=== PATIENT | female | born 1965 | race Caucasian/White ===

== ENCOUNTER → 2023-10-09 08:42 | Outpatient (REF) | payer BC, SELFPAY | LOC: WDC 08:42 | PROVIDERS: ATTENDING PHYSICIAN Physician Assistant Medical | DX: Z12.31 Encounter for screening mammogram for malignant neoplasm of breast (principal) | CPT/HCPCS: 77063; 77067 ==

== ENCOUNTER 2023-11-14 10:23 | Emergency (ER) | payer BC, SELFPAY ==
[2023-11-14 10:38] VITALS: BP 160/99
[2023-11-14 10:40] LABS: Glucose - Point of Care 120 mg/dl (70-99)
--- NOTE | 2023-11-14 11:35 | CON.NEURO4 ---
Addendum entered and electronically signed by Tod Nicole MD 11/14/23 13:39:
Studies reviewed.
I have personally examined the patient. I reviewed and agree with the SECURITY REPRESENTATIVE's Note.
My addenda:
Awake, alert, interactive. No acute distress.
Speech intact.
Follows 2-step requests w/o difficulty. No tremor.
Extra-ocular movements grossly intact.
Facial movements full and symmetric. Hearing intact to normal conversational volume.
Normal UE movements bilaterally.
Neck: full ROM.
Chest: no dyspnea
Heart: no JVD
Ext: (-) Clubbing, (-) Cyanosis, (-) Edema
IMPRESSIONS/RECOMMENDATIONS:
Abrupt onset of right arm, leg, and facial sensation change with head discomfort
Differential diagnosis includes left MCA territory abnormality, metabolic disturbance, migraine with aura although the patient does not have symptomatology that meet the diagnosis of migraine currently
Check MRI of brain with and without contrast as the patient reports no significant headaches in the past
Consider MRA head and neck based on MRI of brain findings or CTA head and neck
Check blood work for potential metabolic abnormalities
Consider the use of gabapentinoids as therapy for discomfort
Consider use of cholesterol-lowering agents
Consider antihypertensives based on future blood pressures and findings by MRI
D/W patient
Will continue to follow pending results.
Original Note:
Documented by User: Torri Ardon NP 11/14/23 13:31
Consultation - Neurology 4
-
CONSULTING PHYSICIAN: Tod Nicole MD
REFERRING PHYSICIAN: ER/Dr. Bowman
DICTATED BY: SONIA Mendoza
DATE/TIME OF REQUEST: 11/14/23
DATE/TIME OF CONSULTATION: 11/14/23
Reason for Consultation: Numbness
History of Present Illness:
This is a 57-year-old right-handed female who has presented to the hospital with report of right-sided numbness and right head pressure. Patient reports that sometime yesterday (11/13/23) she developed a tingling sensation in her right hand that
then extended up her right arm to her shoulder, then to her right face, and right leg primarily from her right knee down to her right foot. She cannot recall what time of day this began. She reports having transient tingling in her right hand and
right foot associated with extremity overuse, and she thought her current numbness would resolve as well. Today (11/14/23), she woke up and noted that the tingling was persistent and hadn't improved. Additionally, she reports having a dull
right-sided pressure headache, prompting her to come to the ER for evaluation. CT head was obtained on arrival and is negative for any acute abnormalities. She denies any dizziness, neck/back pain, photo/phonophobia, visual changes/aura,
speech/swallow difficulty, nausea/vomiting, weakness, chest pain, palpitations, and shortness of breath. She does note that her left toes feel numb as well when she flexes her ankle. She denies any history of headaches/migraines, recent illness,
TIA, or stroke and she is not taking any blood-thinning medications. NIHSS is a 1 in the ER for sensation change. She is not a candidate for TNK/IAT due to being outside of the time window and low NIHSS.
Past Medical History: HLD, Finn's esophagus, anxiety, left lumbar radiculopathy, bulging lumbar disc, osteoarthritis
Surgical History: [place] teeth extraction, breast implants.
Family History: Reviewed and noncontributory.
Social History: Former smoker. Occasional alcohol. Denies illicit drug use.
Allergies: Penicillins.
Home Medications: None.
Review of Symptoms:
Patient denies any fever, chest pain, shortness of breath, GI or symptoms.
�Per the HPI.�All systems are reviewed negative except above.
Physical Exam:
The patient is afebrile, abdomen is nondistended, breathing is unlabored, skin is warm and dry, no edema.
NIH Stroke Scale:
I performed the NIH stroke scale on the patient on 11/14/23 at 1200. The patient scored 1 points on the NIH stroke scale assessment, which were assigned as follows: See below.
Neurologic Examination:
The patient is awake, alert and oriented x 3. She is able to follow commands and answer questions appropriately. There is no aphasia or dysarthria. On cranial nerve assessment, pupils are 3 mm bilateral, round and reactive to light and
accommodation. Visual greenwood are full. Extraocular movements are intact. Facial sensations are intact and bilaterally symmetrical, there is no facial asymmetry. Hearing is intact bilaterally to normal conversation volume. Tongue palate and uvula
are midline. Sternocleidomastoid strengths are full bilaterally. Motor strengths are 5/5 bilateral upper and lower extremities on medical research [place] scale. There is no drift or involuntary movement noted. Deep tendon reflexes are 1+ bilateral
upper and lower extremities and Babinski is absent bilaterally. Sensations of temperature and vibration are intact and bilaterally symmetrical. There was no extinction noted on double simultaneous stimulation. Coordination is intact by finger to
nose bilaterally.
Lab Results: See below.
Neuro Imaging:
1. CT Head 11/14/23: There are no focal or acute intracranial abnormalities. There is mild diffuse cortical atrophy.
Differentials for the patient's presentation include:
1. Concern for a small ischemic stroke possibly in the thalamus producing hemibody sensation change.
2. Migraine with aura possibly producing headache/sensation change but cannot assume this given no history of migraine headaches and this is a first time occurence.
3. CT head negative for hemorrhage.
4. Metabolic disturbance possibly producing symptoms.
Patient has the following risk factors for their symptoms: Smoker, HLD, HTN
IV Tenecteplase/IAT candidacy: Not a candidate due to outside of time window, low NIHSS.
Recommendations:
-MRI brain noncontrast pending.
-Checking blood work for metabolic abnormalities.
-Remainder of workup based on MRI brain results.
Discussed patient care with: Dr. Nicole, the patient
Vital Signs and Labs
-
Vital Signs and Labs:
Vital Signs
Temp Pulse Resp BP Pulse Ox
98.2 F 90 20 160/99 98
11/14/23 10:38 11/14/23 10:38 11/14/23 10:38 11/14/23 10:38 11/14/23 10:38
NIH Stroke Score
Subsequent NIH Scale
Date of Subsequent NIH Scale: 11/14/23
Time of Subsequent NIH Scale: 12:00
NIH Stroke Score
Level of Consciousness: 0 - Alert
LOC Questions: 0-Answers both correctly
LOC Commands: 0-Performs both correctly
Best Horizontal Gaze: 0-Normal
Visual [place]: 0=Normal, no visual loss
Facial Palsy: 0=Normal, symmetrical
Motor - Right Arm: 0=No drift 10 seconds
Motor - Left Arm: 0=No drift 10 seconds
Motor - Right Le-No drift 5 seconds
Motor - Left Le-No drift 5 seconds
Limb Ataxia: 0-Absent
Sensation: 1-Mild loss
Best Language: 0-No aphasia
Dysarthria: 0-Normal
Extinction and Inattention: 0-No abnormality
Total Score:: 1

Documented by User: Tod Nicole MD 11/14/23 13:36
NIH Stroke Score
NIH Stroke Score
Total Score:: 1
[2023-11-14 12:21] LABS: % Basophils 0.8 % (0-2); % Eosinophils 1.7 % (0-6); % Immature Granulocytes 0.3 % (0-0.5); % Lymphocytes 32.8 % (20.5-51.1); % Monocytes 7.9 % (1.7-9.3); % Neutrophils 56.5 % (42.2-75.2); Absolute Basophils 0.1 10^3/uL (0-0.2); Absolute Eosinophils 0.1 10^3/uL (0-0.7); Absolute Lymphocytes 2.5 10^3/uL (1.2-3.4); Absolute Monocytes 0.6 10^3/uL (0.1-0.6); Absolute Neutrophils 4.2 10^3/uL (1.4-6.5); Hematocrit 40.5 % (37.0-47.0); Mean Corp Hgb Conc. 34.6 g/dL (33.0-37.0); Mean Corpuscular Hgb 32.4 pg (27.0-31.0); Mean Corpuscular Volume 93.8 fL (81.0-99.0); Mean Platelet Volume 9.6 fL (7.4-10.4); Nucleated Red Blood Cells % 0 %; Platelet Count 334 10^3/uL (130-400); Red Blood Cell Count 4.32 10^6/uL (4.20-5.40); White Blood Cell Count 7.5 10^3/uL (4.8-10.8)
[2023-11-14 12:28] LABS: ALT (SGPT) 21 U/L (0-35); AST (SGOT) 30 U/L (14-36); Albumin 4.6 g/dl (3.5-5.0); Alkaline Phosphatase 87 U/L (38-126); Blood Urea Nitrogen 19 mg/dl (7-17); Calcium 10.1 mg/dl (8.4-10.2); Carbon Dioxide 28 mmol/L (22-30); Chloride 103 mmol/L (98-107); Glucose 98 mg/dl (70-99); Potassium 4.2 mmol/L (3.5-5.1); Sodium 138 mmol/L (135-145); Total Bilirubin 0.7 mg/dl (0.2-1.3); Total Protein 7.6 g/dl (6.3-8.2); eGFR > 60.00
--- NOTE | 2023-11-14 12:28 | ED.GENMED ---
History of Present Illness
General
Chief Complaint: Headache
Source: patient
Exam Limitations: none
Time Seen by Provider: 11/14/23 11:11
Nursing documentation reviewed up to this point in time: agreed with
Travel History
Have you had any contact with someone who has COVID-19?: No
Do you have any symptoms of coronavirus? Fever > 100 degrees, chills, cough, shortness of breath, sore throat, loss of taste or smell, muscle aches, or headache?: No
History of Present Illness
History of Present Illness:
Patient presents to ED secondary to right-sided head and facial discomfort with numbness sensation, as well as right upper arm and right lower leg numbness/tingling sensation, since yesterday. Denies dizziness. Denies blurred vision. Denies
weakness. Denies difficulty with ambulation. Denies difficulty with speech. Denies recent illness. Denies recent change in medications or diet. Patient states that she has had intermittent numbness in the past, but states that her symptoms are
little more severe today.
Review of Systems
Review of Systems
Allergies reviewed?: Yes
All Other Systems: ROS reviewed and negative except as documented in HPI and ROS
Constitutional: Reports no symptoms
EENT: Reports no symptoms
Respiratory: Reports no symptoms
Cardiac: Reports no symptoms
ABD/GI: Reports no symptoms
Musculoskeletal: Reports no symptoms
Skin: Reports no symptoms
Neurological: Reports headache and numbness
Phy Exam
Physical Exam
Physical Exam:
Physical Exam
General: mild distress, not acutely ill. afebrile
Head: nc/at. eomi
Neck: supple. no meningeal signs.
Heart: s1/s2 regular rate and rhythm, no murmur. equal radial pulses.
Lungs: no acute respiratory distress. clear bilaterally
Abdomen: normal bowel sounds. not tender.
Neuro: alert and oriented. no focal neurological deficits. normal speech. normal gait.
Skin: no rash
Psychiatric: well kept. interactive and cooperative
Extremities: no edema. no calf tenderness.
Course
Orders/Labs/Results
Orders:
Orders
11/14/23 10:[address] [CT Head W/o Iv Contrast] Urgent
Comment:
Reason For Exam: headache, right sided tingly
11/14/23 11:50
Add On- LAB Routine
Comments:: Please add to today's labs or draw as routine
Tests Added?: TSH reflex, Ferritin, Folate, Vit. B12, ESR
11/14/23 11:56
MR Brain W/o & With Contrast Routine
Comment:
Reason For Exam: ? left MCA lesion, sensation change
Recent pill cam endoscopy?: No
11/14/23 12:00
NEUROLOGY CONSULT Urgent
Consulting Provider: Tod Nicole
Was physician already notified: Yes
11/14/23 12:08
CBC/With ESR Urgent
CRP [C-Reactive Protein] Urgent
Comprehensive Metabolic Panel Routine
Comment: may use blood in lab
Ferritin Urgent
Comment: ADD ON
Folate Urgent
Comment: ADD ON
Magnesium Urgent
TSH Reflex To Free T4 Urgent
Comment: ADD ON
Vitamin B12 Urgent
Comment: ADD ON
Abnormal Lab Results
11/14/23 11/14/23
10:39 12:08
MCH 32.4 H pg
(27.0-31.0)
BUN 19 H mg/dl
(7-17)
POC Glucose 120 H mg/dl
(70-99)
11/14/23 12:08
11/14/23 12:08
Vital Signs
Initial and Last Documented VS:
Initial Vital Signs
Temp Pulse Resp BP Pulse Ox
98.2 F 90 20 160/99 98
11/14/23 10:38 11/14/23 10:38 11/14/23 10:38 11/14/23 10:38 11/14/23 10:38
Last Documented Vital Signs
Temp Pulse Resp BP Pulse Ox
98.2 F 78 16 142/87 98
11/14/23 10:38 11/14/23 14:04 11/14/23 14:04 11/14/23 14:04 11/14/23 14:04
MDM/Problems Addressed
MDM/Problems Addressed:
Pt evaluated in ED by (neurology) - recommends obtaining MRI Brain. If MRI normal, feels that patient can be discharged home without any further workup.
MRI brain : no acute findings.
Pt is hemodynamically stable and neurologically intact at time of discharge, with recommendation to follow-up with her primary care physician and/or Dr. Nicole as an outpatient.
*Critical Care Note
Total Time (30-74mins, 75-104mins- exclusive of procedures): Not Applicable
ED Attending Note
-
Portions of this chart may have been created with voice recognition software.� Occasional wrong word or��sound alike� substitutions may have occurred due to the inherent limitations of voice recognition software.
Discharge Plan
Departure
Patient Disposition: Home (Routine Discharge)
Date of Disposition: 11/14/23
Time of Disposition: 14:32
Patient with high blood pressure during this ER visit?: Yes
Discharge Problem:
Paresthesia
Instructions: Paresthesia (DC)
Referrals:
Tod Puente, DO [Family Provider] -
Tod Nicole MD [Active] -
Activity Restrictions/Additional Instructions:
As discussed, please follow-up with your primary care physician and/or referred neurologist for further evaluation and treatment.
Interventions
Interventions:
*Risk Screen - Suicide Last Done: 11/14/23 12:12
*General Assessment Last Done: 11/14/23 12:12
*Neglect/Abuse Screening Last Done: 11/14/23 12:12
ED- Fall Risk Assessment Last Done: 11/14/23 14:37
*ED COVID-19 Vaccine History Last Done: 11/14/23 12:12
*Nursing Disposition Last Done: 11/14/23 14:37
ED- Neurological Assessment Last Done: 11/14/23 12:11
Discharge Date and Time
Discharge Date/Time: 11/14/23 14:41
Print Language: [place]
[2023-11-14 12:32] LABS: C-Reactive Protein < 5.00 mg/L (0.0-10.00)
[2023-11-14 13:15] LABS: Erythrocyte Sed Rate 14 mm/hour (0-20)
[2023-11-14 13:36] LABS: TSH Reflex To Free T4 1.38 uIU/ml (0.47-4.68)
[2023-11-14 13:40] LABS: Ferritin 34.4 ng/ml (11.1-264.0)
[2023-11-14 14:04] VITALS: BP 142/87
[2023-11-14 14:12] LABS: Folate 10.4 ng/ml (2.76-20); Vitamin B12 406 pg/ml (239-931)
== END 2023-11-14 14:41 | disposition home or self-care (01) ==
LOC: EMR 10:23
PROVIDERS: CONSULT PHYSICIAN Psychiatry & Neurology Neurology; EMERGENCY PHYSICIAN Emergency Medicine; FAMILY PHYSICIAN Family Medicine
DX: R20.0 Anesthesia of skin (principal); R20.2 Paresthesia of skin; R51.9 Headache, unspecified; R03.0 Elevated blood-pressure reading, without diagnosis of hypertension; M54.16 Radiculopathy, lumbar region; F41.9 Anxiety disorder, unspecified; K22.70 Barrett's esophagus without dysplasia; E78.5 Hyperlipidemia, unspecified; M19.90 Unspecified osteoarthritis, unspecified site; Z87.891 Personal history of nicotine dependence; Z88.0 Allergy status to penicillin
CPT/HCPCS: 99284; 70450; 70553; 80053; 82607; 82728; 82746; 82962; 83735; 84443; 85025; 85652; 86140; A9575

== ENCOUNTER → 2024-02-27 17:26 | Outpatient (REF) | payer BC, SELFPAY | LOC: RAD 17:26 | PROVIDERS: ATTENDING PHYSICIAN Family Medicine | DX: R05.1 Acute cough (principal) | CPT/HCPCS: 71046 ==

== ENCOUNTER → 2024-03-11 08:34 | Outpatient (REF) | payer BC, SELFPAY | LOC: HWRAD 08:34 | PROVIDERS: ATTENDING PHYSICIAN Physician Assistant Medical | DX: R10.13 Epigastric pain (principal); R10.11 Right upper quadrant pain | CPT/HCPCS: 76700 ==

== ENCOUNTER → 2024-10-10 08:38 | Outpatient (REF) | payer BC, SELFPAY | LOC: WDC 08:38 | PROVIDERS: ATTENDING PHYSICIAN Physician Assistant Medical | DX: Z12.31 Encounter for screening mammogram for malignant neoplasm of breast (principal) | CPT/HCPCS: 77063; 77067 ==